=== PATIENT | female | born 1990 | race Caucasian/White ===

== ENCOUNTER → 2020-05-30 08:35 | Outpatient (BNVA) | payer SELFPAY | PROVIDERS: Family Provider Family Medicine; PCP Obstetrics & Gynecology; Visit Provider Obstetrics & Gynecology | DX: Z12.4 Encounter for screening for malignant neoplasm of cervix (principal) | CPT/HCPCS: 88175 ==

== ENCOUNTER → 2021-06-13 08:41 | Outpatient (BNVA) | payer BC, SELFPAY | PROVIDERS: Family Provider Family Medicine; PCP Family Medicine Adult Medicine; Visit Provider Obstetrics & Gynecology | DX: Z00.00 Encounter for general adult medical examination without abnormal findings (principal) | CPT/HCPCS: 80061; 83036 ==

== ENCOUNTER → 2022-04-02 11:37 | Outpatient (BNVA) | payer OTHER, SELFPAY | PROVIDERS: Family Provider Family Medicine; PCP Family Medicine Adult Medicine; Visit Provider Emergency Medicine | DX: U07.1 COVID-19 (principal); J06.9 Acute upper respiratory infection, unspecified; B34.9 Viral infection, unspecified | CPT/HCPCS: 87635 ==

== ENCOUNTER → 2022-10-01 11:20 | Outpatient (BNVA) | payer OTHER, SELFPAY | PROVIDERS: Family Provider Family Medicine; PCP Family Medicine Adult Medicine; Visit Provider Nurse Practitioner Women's Health | DX: N91.2 Amenorrhea, unspecified (principal); N91.1 Secondary amenorrhea | CPT/HCPCS: 84146; 84443; 84702 ==

== ENCOUNTER → 2023-01-22 13:39 | Outpatient (BNVA) | payer MEDICAID, SELFPAY | PROVIDERS: Family Provider Family Medicine; Visit Provider Nurse Practitioner Women's Health | DX: Z32.00 Encounter for pregnancy test, result unknown (principal); N92.6 Irregular menstruation, unspecified | CPT/HCPCS: 81025 ==

== ENCOUNTER → 2023-02-12 12:59 | Outpatient (BNVA) | payer SELFPAY | PROVIDERS: Family Provider Family Medicine; Visit Provider Nurse Practitioner Women's Health | DX: Z34.90 Encounter for supervision of normal pregnancy, unspecified, unspecified trimester (principal); Z3A.00 Weeks of gestation of pregnancy not specified | CPT/HCPCS: 81000 ==

== ENCOUNTER → 2023-03-02 14:00 | Outpatient (BNVA) | payer MEDICAID, SELFPAY | PROVIDERS: Family Provider Family Medicine; Visit Provider Obstetrics & Gynecology | DX: Z34.80 Encounter for supervision of other normal pregnancy, unspecified trimester (principal); Z3A.00 Weeks of gestation of pregnancy not specified | CPT/HCPCS: 80307; 81000; 82950; 84443; 85027; 86592; 86762; 86803; 86850; 86900; 87086; 87340; 87806 ==

== ENCOUNTER → 2023-03-20 14:03 | Outpatient (BNVA) | payer OTHER, SELFPAY | PROVIDERS: Family Provider Family Medicine; Visit Provider Obstetrics & Gynecology | DX: Z34.92 Encounter for supervision of normal pregnancy, unspecified, second trimester (principal); Z3A.13 13 weeks gestation of pregnancy | CPT/HCPCS: 76801 ==

== ENCOUNTER → 2023-05-04 09:29 | Outpatient (BNVA) | payer OTHER, SELFPAY | PROVIDERS: Family Provider Family Medicine; Visit Provider Obstetrics & Gynecology | DX: Z34.80 Encounter for supervision of other normal pregnancy, unspecified trimester (principal); Z3A.00 Weeks of gestation of pregnancy not specified | CPT/HCPCS: 76805 ==

== ENCOUNTER → 2023-05-06 10:13 | Outpatient (BNVA) | payer SELFPAY | PROVIDERS: Family Provider Family Medicine; Visit Provider Obstetrics & Gynecology | DX: Z34.80 Encounter for supervision of other normal pregnancy, unspecified trimester (principal); Z3A.00 Weeks of gestation of pregnancy not specified | CPT/HCPCS: 81000 ==

== ENCOUNTER → 2023-06-01 09:42 | Outpatient (BNVA) | payer OTHER, SELFPAY | PROVIDERS: Family Provider Family Medicine; Visit Provider Nurse Practitioner Women's Health | DX: Z34.80 Encounter for supervision of other normal pregnancy, unspecified trimester (principal) | CPT/HCPCS: 84315; 87491; 87591 ==

== ENCOUNTER → 2023-06-02 10:21 | Outpatient (BNVA) | payer OTHER, SELFPAY | PROVIDERS: Family Provider Family Medicine; Visit Provider Obstetrics & Gynecology | DX: Z34.92 Encounter for supervision of normal pregnancy, unspecified, second trimester (principal); Z3A.24 24 weeks gestation of pregnancy | CPT/HCPCS: 76816; 84315 ==

== ENCOUNTER → 2023-06-29 09:07 | Outpatient (BNVA) | payer OTHER, SELFPAY | PROVIDERS: Family Provider Family Medicine; Visit Provider Obstetrics & Gynecology | DX: Z34.80 Encounter for supervision of other normal pregnancy, unspecified trimester (principal) | CPT/HCPCS: 82950; 84315; 85025 ==

== ENCOUNTER → 2023-07-08 10:15 | Outpatient (BNVA) | payer OTHER, SELFPAY | PROVIDERS: Family Provider Family Medicine; Visit Provider Obstetrics & Gynecology | DX: Z34.93 Encounter for supervision of normal pregnancy, unspecified, third trimester (principal); Z3A.30 30 weeks gestation of pregnancy | CPT/HCPCS: 76816 ==

== ENCOUNTER → 2023-08-10 09:30 | Outpatient (BNVA) | payer OTHER, MEDICAID, SELFPAY | PROVIDERS: Family Provider Family Medicine; Visit Provider Nurse Practitioner Women's Health | DX: Z34.80 Encounter for supervision of other normal pregnancy, unspecified trimester (principal); Z3A.00 Weeks of gestation of pregnancy not specified | CPT/HCPCS: 84315; 87086 ==

== ENCOUNTER → 2023-08-24 08:07 | Outpatient (BNVA) | payer OTHER, MEDICAID, SELFPAY | PROVIDERS: Family Provider Family Medicine; Visit Provider Obstetrics & Gynecology | DX: Z34.80 Encounter for supervision of other normal pregnancy, unspecified trimester (principal); Z3A.00 Weeks of gestation of pregnancy not specified | CPT/HCPCS: 84315; 87081 ==

== ENCOUNTER 2023-09-15 19:47 | Inpatient (IN) | payer OTHER, MEDICAID, SELFPAY ==
[2023-09-15] VITALS (8 sets, daily range): BP systolic 109–150; BP diastolic 57–72; PULSE 65–86; RESP 16; TEMP 36.2
[2023-09-15 19:58] LABS: Basophils % 0.3 %; Eosinophils % 0.3 %; Hematocrit 33.1 % (36-47); Lymphocytes # 1.4 10^3/uL (0.8-4.8); Mean Corpuscular HGB Conc 30.5 g/dL (30-55); Mean Corpuscular Hemoglobin 22.5 pg (27-33); Mean Corpuscular Volume 73.9 fl (85-98); Monocytes # 0.6 10^3/uL (0.2-0.9); Monocytes % 7.1 %; Neutrophils # 6.58 10^3/uL (1.8-7.7); Nucleated Red Blood Cells % 0 %; Platelet Count 133 10^3/cmm (157-399); Red Blood Count 4.48 10^6/uL (3.85-5.65); Red Cell Distribution Width 24.9 % (12.1-15.1); White Blood Count 8.68 10^3/uL (3.29-11.43)
[2023-09-15] MEDS: miSOPROStol 100 mcg tablet 25 MCG VAGINAL (20:53)
--- NOTE | 2023-09-15 21:10 | P.HP_ITS ---
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 TRUCK DRIVER History of Present Illness Kyra Ruiz is a 33 year old female EDC September 19, 2023 at 39 w 3 d admitted for elective induction of labor no complications no c/o + active movements Present Details : 3 Para: 2 Labs Rubella: Non-Immune RPR: Negative GBS: Negative Medications/Allergies Home Medications Medication Instructions Recorded Confirmed Last Taken Type prenat.vits,ángel,hah-iwzs-isjaj 1 tab PO DAILY 07/02/22 09/15/23 Unknown History diphenhydramine HCl 25 mg tablet 25 mg PO .q hs PRN allergy 01/06/23 09/15/23 Unknown Rx (Allergy (diphenhydramine)) symptoms #30 tabs loratadine 5 mg-pseudoephedrine ER 1 tab PO Q12H 07/27/23 09/15/23 Unknown History 120 mg tablet,extended release,12hr (Claritin-D 12 Hour) docusate sodium 100 mg capsule 100 mg PO BID 30 days #60 caps 08/10/23 09/15/23 Unknown Rx (Colace) ferrous sulfate 325 mg (65 mg See Rx Instructions .Route 08/27/23 09/15/23 Unknown Rx iron) tablet .COMPLEX #20 tabs Allergies Allergy/AdvReac Type Severity Reaction Status Date / Time morphine AdvReac Intermediate ADR-Nausea Verified 09/15/23 09:26 cyclobenzaprine AdvReac NAUSEA Verified 09/15/23 09:26 [From Flexeril] [facility] 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 Dowling Surgical History History of orthopedic surgery Age of 11--surgery for a left leg fracture Status post bariatric surgery 2013-states she had a laparoscopic gastric sleeve placed when she was in [place], [place]. She is lost a total of 50 pounds thus far. Family History Grandfather Diabetes maternal Heart disease maternal Mother Heart disease Hyperlipidemia Father Heart disease Grandmother Stroke maternal, from a brain aneurysm Denies family history of Colon cancer Ovarian cancer Breast cancer Hypertension Uterine cancer Thyroid disease History History History 2 3 Term 2 0 Miscarriages/Ectopic 0 Living Children 2 Care LUIS Calculator 2 Estimated Delivery Date Method Current WG Current Estimate 09/19/23 LMP (Certain) 39w 5d Other Estimates 09/19/23 Ultrasound #1 39w 5d Specific Issues/Plans * OBESITY-- needs early GCT Vitals/I&O/Wt Last Vital Signs Temp 98.1 F 09/16/23 19:52 Pulse 75 09/17/23 00:33 Resp 18 09/16/23 20:20 BP 134/79 09/17/23 05:52 Pulse Ox 98 09/17/23 00:33 O2 Del Method Room Air 09/15/23 19:57 09/16/23 09/16/23 09/17/23 14:59 22:59 06:59 Intake Total 1150.767 / 1150.767 50 / 1200.767 Output Total 300 / 300 Balance 1150.767 / 1150.767 -250 / 900.767 Weight last 48 hrs Weight 8.325 oz Physical Exam 2 Narrative: VS normal Comfortable, awake, alert Lungs: clear Cor: RRR Fundal height: 39 cm; large pannus Cx: 1 cm / 25% / -4 / posterior / cephalic Ext: no edema External monitor: heart tracing good variability, + accelerations Urinary Catheter Management: De Jesus: Cath Placed During This Visit: yes, but has since been removed by the nurse Reason for Continuing Indwelling Catheter: Decision to DC Catheter Urinary Catheter Date of Insertion: 09/16/23 Urinary Catheter Time of Insertion: 04:40 Date Urinary Catheter Removed: 09/16/23 Time Urinary Catheter Discontinued: 16:10 Data 09/17/23 05:45 Results Labs OB ([facility]): 2 Obstetrics US 07/08/23 Blood Type AB Positive 09/15/23 Antibody Screen Negative 09/15/23 Hct 29.8 % (36-47) L 09/17/23 Hgb 8.90 g/dL (11.27-16.99) L 09/17/23 Rho(D) Type Rh positive 09/15/23 Plt Count 115 10^3/cmm (157-399) L 09/17/23 Hep Bs Antigen Non-reactive (Nonreactive) 03/02/23 Hepatitis C Antibody Non-reactive (Nonreactive) 03/02/23 Rubella IgG Antibody 377.0 IU/mL (0.0-10.0) H 03/02/23 RPR Nonreactive (Nonreactive) 03/02/23 HIV 1&2 Ab & HIV 1 Ag Non-reactive (Non-Reactiv) 03/02/23 TSH 1.49 uIU/mL (0.27-4.20) 03/02/23 C.trachomatis RNA (TMA) Not detected (NOT DETECTED) N.gonorrhoeae RNA (TMA) Not detected (NOT DETECTED) Chlamydia/GC Comment See note 06/01/23 Cystic Fibrosis Screen Negative 03/02/23 Gest Glucose Tolerance 103 mg/dL (70-139) 06/29/23 Hemoglobin A1c 5.2 % (4.0-6.0) 06/13/21 Ser , Semi-Qnt 1.00 mIU/mL 10/01/22 HCG, Qual Positive (Negative) H 01/22/23 Urine Opiates Screen Negative ng/mL (Negative) 03/02/23 Ur Barbiturates Screen Negative ng/mL (Negative) 03/02/23 Ur Phencyclidine Scrn Negative ng/mL (Negative) 03/02/23 Ur Amphetamines Screen Negative ng/mL (Negative) 03/02/23 U Benzodiazepines Scrn Negative ng/mL (Negative) 03/02/23 Urine Cocaine Screen Negative ng/mL (Negative) 03/02/23 U Marijuana (THC) Screen Negative ng/mL (Negative) 03/02/23 Micro Urine Specimen 08/10/23 Pap Smear Interpret See note 05/30/20 Prolactin 7.65 ng/mL (4.8-23.3) 10/01/22 A&P Assessment and plan (1) Supervision of other normal : 39 w 3 d (2) Encounter for induction of labor: admitted for elective induction of labor plan cytotec 25 ug intravaginal Attestations 2 Medical Necessity Statement*: patient at 39 w 3 d; admitted for induction of labor Coding Level of Care Code Acute Code for Chg Fwd Diagnoses Supervision of other normal Z34.80 Encounter for induction of labor Z34.90 Time Spent (min) 30
[2023-09-16] VITALS (152 sets, daily range): BP systolic 93–157; BP diastolic 50–102; PULSE 65–123; RESP 16–18; TEMP 35.8–36.8; O2SAT 90–100
[2023-09-16] MEDS: fentaNYL 50 mcg/mL INJ 2mL IVP ×2 (00:49→03:00)
[2023-09-16] MEDS: lactated ringers 1,000 ML 999 ML IV (02:26)
[2023-09-16] MEDS: ROPivacaine syringe 100 MG/50 ML SYRINGE 10 MG EPIDURAL ×4 (03:50→14:36)
--- NOTE | 2023-09-16 03:54 | ANES.PREANE2 ---
Pre-Anesthetic Assessment Height/Weight: Height 1.6 m Weight 236 g Temp Pulse Resp BP Pulse Ox O2 Del Method 98.2 F 93 16 156/74 99 Room Air 09/16/23 02:33 09/16/23 03:49 09/16/23 03:00 09/16/23 03:49 09/16/23 03:47 09/15/23 19:57 Preop Diagnosis: Labor pain MARQUIS Was Beta Brien taken within 24 hours: N/A Was Clonidine taken within 24 hours: N/A Social No alcohol and No tobacco Exam alert, oriented x 3, clear to auscultation bilaterally and regular rate & rhythm Airway Submandibular: within normal limits Cervical ROM: within normal limits Mallampati: Class II Dentition: full History/ROS No significant history except as noted and No significant complaints CV/HEM None reported None reported Hepatic None reported GI None reported Metabolic Morbid Obesity [facility] [place] None reported Neuropsych None reported Anesthetic Plan ASA status: 2 Anesthesia: Anesthesia Evaluation and Regional (specify below) (MARQUIS) Risk of > 500 ml blood loss (7ml/kg in children): No Medications/Allergies Home Medications Medication Instructions Recorded Confirmed Last Taken Type prenat.vits,ángel,pbf-irfm-gzyiq 1 tab PO DAILY 07/02/22 09/15/23 Unknown History diphenhydramine HCl 25 mg tablet 25 mg PO .q hs PRN allergy 01/06/23 09/15/23 Unknown Rx (Allergy (diphenhydramine)) symptoms #30 tabs loratadine 5 mg-pseudoephedrine ER 1 tab PO Q12H 07/27/23 09/15/23 Unknown History 120 mg tablet,extended release,12hr (Claritin-D 12 Hour) docusate sodium 100 mg capsule 100 mg PO BID 30 days #60 caps 08/10/23 09/15/23 Unknown Rx (Colace) ferrous sulfate 325 mg (65 mg See Rx Instructions .Route 08/27/23 09/15/23 Unknown Rx iron) tablet .COMPLEX #20 tabs Allergies Allergy/AdvReac Type Severity Reaction Status Date / Time morphine AdvReac Intermediate ADR-Nausea Verified 09/15/23 09:26 cyclobenzaprine AdvReac NAUSEA Verified 09/15/23 09:26 [From Flexeril] Current Medications Generic Name Dose Route Start Last Admin Trade Name Freq PRN Reason Stop Dose Admin Fentanyl 25 - 100 mcg 09/15/23 19:46 09/16/23 03:00 Fentanyl 50 Mcg/Ml Inj 2ml IVP 50 mcg Q1H PRN Administration SEVERE PAIN Lactated Ringer's 1,000 mls @ 999 mls/hr 09/15/23 19:46 09/16/23 02:26 Lactated Ringers IV 999 mls/hr .Q1H1M PRN Administration Per L&D Rescitation Protocol Dextrose/Lactated Ringer's 1,000 mls @ 125 mls/hr 09/15/23 20:00 09/16/23 01:39 Dextrose 5%-Lactated Ringers IV Not Given .Q8H KAYE PFSH Anesthesia Medical History Allergic rhinitis due to allergen Amenorrhea No pertinent past medical history Denies diabetes, asthma, hypertension, seizures, DVT/PE PMD: Dr. Dowling Surgical History History of orthopedic surgery Age of 11--surgery for a left leg fracture Status post bariatric surgery 2013-states she had a laparoscopic gastric sleeve placed when she was in [place], [place]. She is lost a total of 50 pounds thus far. Family History Grandfather Diabetes maternal Heart disease maternal Mother Heart disease Hyperlipidemia Father Heart disease Grandmother Stroke maternal, from a brain aneurysm Denies family history of Colon cancer Ovarian cancer Breast cancer Hypertension Uterine cancer Thyroid disease Female Reproductive History : 3 Data Anesthesia 09/15/23 19:31 Short CBC 09/15/23 Range/Units 19:31 WBC 8.68 (3.29-11.43) 10^3/uL Hgb 10.10 L (11.27-16.99) g/dL Hct 33.1 L (36-47) % MCV 73.9 L (85-98) fl Plt Count 133 L (157-399) 10^3/cmm Neut % (Auto) 76.0 % Neut # (Auto) 6.58 (1.8-7.7) 10^3/uL Blood Bank 09/15/23 19:31 Blood Type AB Positive Rho(D) Type Rh positive Antibody Screen Negative Cardiac Studies: No Data to Display
--- NOTE | 2023-09-16 03:56 | P.ANES_ITS ---
Anesthesia Procedures Procedure/Date: 09/16/23 Epidural: Time Out Performed: Yes Consents Signed: Procedure Consent Consent: from patient Lumbar Level: L3-L4 Epidural position: sitting Epidural procedure: sterile prep of area, 1% lidocaine to numb the area, 18 g needle, neg for paresthesia, test dose given, 1.5% xylocaine 1:200k epi (5cc), 0 .2% Ropivacaine bolus ml (4cc and Fentanyl 100mcg), placed PCEA, no systemic response, sterile dressing applied, L.U.D. no apparent complications and 0.2% Ropiavacaine @ mls/hr (10cc/hour) Additional Comments: RASHIDA at 8cm. Cath placed 3 cm into epid space. Pt tolerated well
[2023-09-16] MEDS: dextrose 5%-lactated ringers 1,000 ML 125 ML IV ×2 (04:36→13:10)
[2023-09-16] MEDS: hyDROXYzine 25 mg Capsule 50 MG PO ×3 (06:50→20:23)
[2023-09-16] MEDS: oxytocin 30 UNIT/500 ML BAG IV (13:29)
--- NOTE | 2023-09-16 16:45 | P.PCNOB_ITS ---
Delivery Note: Date of delivery: September 16, 2023 Pre-delivery diagnoses: 39.4 wk IUP Multiparity Post-delivery diagnoses: Precipitious viable male Procedure: viable male Op report anesthesia: Epidural Delivering Physician: Sena Bean DO Estimated blood loss (mL): 400 Findings: viable male Post Delivery Diagnoses: Anemia: Qualifiers: Qualified Code(s): D64.9 - Anemia, unspecified Delivery: 33-year-old multiparous female del ivered via of a viable male precipitously from OA presentation. The anterior followed by the posterior shoulders delivered with the remainder of the baby's body to follow with a copious amount of meconium stained fluid noted. Robust cry spontaneously was noted. The oral and nasal pathways bulb suctioned. Delay in clamping the umbilical cord was done, the cord was then clamped x 2 and cut. The baby was then placed on the mother's abdomen for nursing staff's evaluation and care. Three-vessel cord was noted, cord blood was obtained and handed off. The placenta presented in a Spicer presentation with trailing membrane. The vaginal vault was explored for lacerations, none noted. The uterus was massaged and firmed well. IV solution with Pitocin was given in a bolus manner. Attending physician Dr. Soto arrived in patient's room. Mother and infant are both in stable and satisfactory condition. Post-Delivery Status: Stable History History History 3 Term 2 0 Miscarriages/Ectopic 0 Living Children 2 A&P Assessment and plan (1) 39 weeks gestation of : (2) Spontaneous vaginal delivery: (3) Obesity: (4) Anemia: Qualifiers: Qualified Code(s): D64.9 - Anemia, unspecified Plan Began care. Coding Level of Care Code Acute Code for Chg Fwd Diagnoses 39 weeks gestation of Z3A.39 Spontaneous vaginal delivery O80 Obesity E66.9 Anemia, unspecified type D64.9
[2023-09-16] MEDS: docusate sodium 100 mg Capsule PO (20:23)
[2023-09-16] MEDS: ibuprofen 800 mg tablet PO (20:24)
[2023-09-17 00:33] VITALS: BP 120/75; PULSE 75; O2SAT 98
[2023-09-17 03:04] VITALS: BP 133/75
[2023-09-17 05:52] VITALS: BP 134/79
[2023-09-17 05:53] LABS: Hematocrit 29.8 % (36-47); Mean Corpuscular HGB Conc 29.9 g/dL (30-55); Mean Corpuscular Hemoglobin 22.6 pg (27-33); Mean Corpuscular Volume 75.6 fl (85-98); Platelet Count 115 10^3/cmm (157-399); Red Blood Count 3.94 10^6/uL (3.85-5.65); Red Cell Distribution Width 25.2 % (12.1-15.1); White Blood Count 13.93 10^3/uL (3.29-11.43)
[2023-09-17] MEDS: prenatal vitamin Capsule 1 CAP PO (09:17)
[2023-09-17] MEDS: ibuprofen 800 mg tablet PO ×2 (09:17→15:39)
[2023-09-17] MEDS: docusate sodium 100 mg Capsule PO (09:18)
[2023-09-17 10:38] VITALS: BP 132/70; PULSE 68; TEMP 36.7; O2SAT 99
--- NOTE | 2023-09-17 11:01 | ANE.PACU2 ---
Inpatient post-anesthesia follow up: Airway intact: Yes Vital signs: Temperature 98.0 F Pulse Rate 68 Respiratory Rate 18 Blood Pressure 132/70 Pulse Oximetry 99 Oxygen Delivery Me thod Room Air Oxygen Flow Rate Fraction of Inspir ed Oxygen Hydration adequate: Yes Nausea and vomiting: No Pain level: 2 Mental status: Baseline Epidural Start/End: Epidural Start Date: 09/16/23 Epidural Start Time: 03:30 Epidural End Date: 09/16/23 Epidural End Time: 16:45
[2023-09-17 16:08] VITALS: BP 147/85; PULSE 78; TEMP 36.6; O2SAT 99
--- NOTE | 2023-09-17 16:50 | PM.OBGYDC ---
Discharge Providers MANAGER [employer] Date of Admission: 09/15/23 19:47 Date of Discharge: 09/17/23 Attending Provider at Admission: Joo Soto MD Attending Provider at Discharge: Joo Soto MD Consults: none Primary MANAGER [employer]: Joo Soto MD Diagnoses at Discharge Discharge Diagnosis (1) Vaginal delivery: Details from hospital stay: patient was admitted for elective induction of labor progressed with normal labor course s/p vaginal delivery Status: Acute Reason for Visit Reason for Visit: IOL Brief History: 33 y.o. at 39 w 3 d, admitted for elective induction of labor Hospital Course Hospital Course normal labor course Information Peripartum Data: Delivery Method: Vaginal Laceration description: Perineal - 2nd Degree Episiotomy description: None complications: none Physical Exam Narrative: afebrile, VS? normal Comfortable, awake, alert Lungs:?? clear Cor:? RRR Abd:? soft, nontender.? Fundus firm. Ext:? no edema;? nontender Urinary Catheter Management: De Jesus: Cath Placed During This Visit: yes, but has since been removed by the nurse Reason for Continuing Indwelling Catheter: Decision to DC Catheter Urinary Catheter Date of Insertion: 09/16/23 Urinary Catheter Time of Insertion: 04:40 Date Urinary Catheter Removed: 09/16/23 Time Urinary Catheter Discontinued: 16:10 History History History 3 Term 2 0 Miscarriages/Ectopic 0 Living Children 2 Discharge Data Studies Completed and Pending Laboratory Results WBC 13.93 10^3/uL (3.29-11.43) H 09/17/23 05:45 RBC 3.94 10^6/uL (3.85-5.65) 09/17/23 05:45 Hgb 8.90 g/dL (11.27-16.99) L 09/17/23 05:45 Hct 29.8 % (36-47) L 09/17/23 05:45 MCV 75.6 fl (85-98) L 09/17/23 05:45 MCH 22.6 pg (27-33) L 09/17/23 05:45 MCHC 29.9 g/dL (30-55) L 09/17/23 05:45 RDW 25.2 % (12.1-15.1) H 09/17/23 05:45 Plt Count 115 10^3/cmm (157-399) L 09/17/23 05:45 MPV Not Reportable 09/17/23 05:45 Neut % (Auto) 76.0 % 09/15/23 19:31 Lymph % (Auto) 16.0 % 09/15/23 19:31 Pinal % (Auto) 7.1 % 09/15/23 19: Eos % (Auto) 0.3 % 09/15/23 19: Baso % (Auto) 0.3 % 09/15/23 19: Neut # (Auto) 6.58 10^3/uL (1.8-7.7) 09/15/23 19: Lymph # (Auto) 1.4 10^3/uL (0.8-4.8) 09/15/23 19: Pinal # (Auto) 0.6 10^3/uL (0.2-0.9) 09/15/23 19: Eos # (Auto) 0.0 10^3/uL (0.0-0.8) 09/15/23 19: Baso # (Auto) 0.0 10^3/uL (0.0-0.1) 09/15/23 19: Nucleated RBC % (auto) 0 % 09/15/23 19: Nucleated RBCs # 0.0 /100WBC 09/15/23 19:31 Blood Type AB Positive 09/15/23 19:31 Rho(D) Type Rh positive 09/15/23 19:31 Antibody Screen Negative 09/15/23 19:31 Procedures Performed induction of labor vaginal delivery Vitals Last Vital Signs Temp 97.8 F 09/17/23 19:00 Pulse 75 09/17/23 19:00 Resp 18 09/16/23 20:20 BP 144/86 09/17/23 19:00 Pulse Ox 99 09/17/23 19:00 O2 Del Method Room Air 09/17/23 19:00 Results Labs OB ([facility]): Obstetrics US 07/08/23 Blood Type AB Positive 09/15/23 Antibody Screen Negative 09/15/23 Hct 29.8 % (36-47) L 09/17/23 Hgb 8.90 g/dL (11.27-16.99) L 09/17/23 Rho(D) Type Rh positive 09/15/23 Plt Count 115 10^3/cmm (157-399) L 09/17/23 Hep Bs Antigen Non-reactive (Nonreactive) 03/02/23 Hepatitis C Antibody Non-reactive (Nonreactive) 03/02/23 Rubella IgG Antibody 377.0 IU/mL (0.0-10.0) H 03/02/23 RPR Nonreactive (Nonreactive) 03/02/23 HIV 1&2 Ab & HIV 1 Ag Non-reactive (Non-Reactiv) 03/02/23 TSH 1.49 uIU/mL (0.27-4.20) 03/02/23 C.trachomatis RNA (TMA) Not detected (NOT DETECTED) 06/01/23 N.gonorrhoeae RNA (TMA) Not detected (NOT DETECTED) 06/01/23 Chlamydia/GC Comment See note 06/01/23 Cystic Fibrosis Screen Negative 03/02/23 Gest Glucose Tolerance 103 mg/dL (70-139) 06/29/23 Hemoglobin A1c 5.2 % (4.0-6.0) 06/13/21 Ser , Semi-Qnt 1.00 mIU/mL 10/01/22 HCG, Qual Positive (Negative) H 01/22/23 Urine Opiates Screen Negative ng/mL (Negative) 03/02/23 Ur Barbiturates Screen Negative ng/mL (Negative) 03/02/23 Ur Phencyclidine Scrn Negative ng/mL (Negative) 03/02/23 Ur Amphetamines Screen Negative ng/mL (Negative) 03/02/23 U Benzodiazepines Scrn Negative ng/mL (Negative) 03/02/23 Urine Cocaine Screen Negative ng/mL (Negative) 03/02/23 U Marijuana (THC) Screen Negative ng/mL (Negative) 03/02/23 Micro Urine Specimen 08/10/23 Pap Smear Interpret See note 05/30/20 Prolactin 7.65 ng/mL (4.8-23.3) 10/01/22 Discharge Plan Discharge Patient Disposition: Home Condition: Stable Prescriptions: Continued prenat.vits,ángel,[id number]-[id number] Tablet 1 tab PO DAILY diphenhydramine HCl [Allergy (diphenhydramine)] 25 mg tablet 25 mg PO .q hs PRN (Reason: allergy symptoms) Qty: 30 0RF Claritin-D 12 Hour 5-120 mg tablet extended release 12 hr 1 tab PO Q12H docusate sodium [Colace] 100 mg capsule 100 mg PO BID 30 Days Qty: 60 1RF ferrous sulfate 325 mg (65 mg iron) tablet See Rx Instructions .ROUTE .COMPLEX Qty: 20 0RF Dose Instruction: TAKE 1 TABLET BY MOUTH EVERY DAY Rx Instructions: TAKE 1 TABLET BY MOUTH EVERY DAY Discharge Orders: Discharge Order (Routine); Ordered 09/17/23 Ordered By: Joo Soto Referrals: Joo Soto MD [Physician] - (Please [facility] tomorrow to schedule your appointment with Dr. Soto for 4-6 weeks. ) Discharge Diet: Usual diet Discharge Activity: Resume usual activity Patient Instructions: Depression (DC), Preeclampsia and Eclampsia After Delivery (GEN), Hemorrhage (DC), OB Discharge Report, OB Food/Drug Interaction Guide, Opioid Safety, OB Home Care, OB Vaginal Deliveries, Abnormal Bleeding Discharge Attestations MANAGER [employer] Time Spent in Discharge Care*: less than 30 min Coding Level of Care Code Acute Code for Chg Fwd Diagnoses Vaginal delivery O80 Time Spent (min) 20
--- NOTE | 2023-09-17 16:50 | P.PN_ITS ---
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 Fundus firm. Ext: no edema; nontender Urinary Catheter Management: De Jesus: Cath Placed During This Visit: yes, but has since been removed by the nurse Reason for Continuing Indwelling Catheter: Decision to DC Catheter Urinary Catheter Date of Insertion: 09/16/23 Urinary Catheter Time of Insertion: 04:40 Date Urinary Catheter Removed: 09/16/23 Time Urinary Catheter Discontinued: 16:10 Data 09/17/23 05:45 A&P Assessment and plan (1) Vaginal delivery: PPD #1, , repair of second-degree perineal laceration doing well patient wants to go home discharge today instructions and precautions given call / return if fever, chills, headache, blurry vision, nausea, vomiting, abdominal pain; vaginal bleeding or discharge; shortness of breath, chest pain, leg pains or swelling; feelings of depression or mood changes; inability to care for baby. f/u in 6 weeks or PRN Attestations 2 Medical Necessity Statement*: patient s/p vaginal delivery Coding Level of Care Code Acute Code for Chg Fwd Diagnoses Vaginal delivery O80 Time Spent (min) 20
[2023-09-17 19:00] VITALS: BP 144/86; PULSE 75; TEMP 36.6; O2SAT 99
== END 2023-09-17 19:05 | disposition home or self-care (01) | DRG 807 ==
LOC: OPOB 09-16 07:25 → OBGYN 09-16 07:25
PROVIDERS: Obstetrics & Gynecology; Admitting Provider Obstetrics & Gynecology; Family Provider Family Medicine; Visit Provider Obstetrics & Gynecology
DX: O99.214 Obesity complicating childbirth (principal); Z37.0 Single live birth; E66.9 Obesity, unspecified; Z3A.39 39 weeks gestation of pregnancy; O90.81 Anemia of the puerperium; D64.9 Anemia, unspecified; O77.0 Labor and delivery complicated by meconium in amniotic fluid; O70.1 Second degree perineal laceration during delivery; O99.844 Bariatric surgery status complicating childbirth
CPT/HCPCS: 36415; 51702; 59025; 59409; 84315; 85025; 85027; 86850; 86900; 96374; 96376; 98960; 99211; J2590; J2795; J3010; J7120; J7121

== ENCOUNTER 2023-10-15 11:23 | Outpatient (CLI) | payer OTHER, MEDICAID, SELFPAY ==
--- NOTE | 2023-10-15 12:00 | USCV_ITS ---
Kyra Ruiz Age: 33 Gender: F : 1990 Exam Date: 10/15/2023 11:54 Ordering Phys: Joo Soto MD Technologist: Exam Location: [facility] [place] Indication: bilat edema PROCEDURES: The venous duplex Doppler examination of both lower extremities was performed in the standard fashion. The following venous structures were evaluated: common femoral vein, profunda vein, proximal portion of the greater saphenous vein, superficial femoral vein, and the popliteal vein. FINDINGS: Normal 2-D Doppler and augmentation and compressibility throughout the lower extremity venous structures. Additional imaging through the proximal calf veins also reveals no thrombus. Limited evaluation of the greater saphenous vein is patent with no thrombus. CONCLUSIONS No DVT bilateral lower extremities. Dr. Key Dodge DO (Electronically Signed) Final Date: 15 October 2023 15:42 S
== END 2023-10-15 11:24 | disposition home or self-care (01) ==
LOC: RAD 11:24
PROVIDERS: Family Provider Family Medicine; Visit Provider Obstetrics & Gynecology
DX: M79.604 Pain in right leg (principal); M79.605 Pain in left leg; R60.0 Localized edema
CPT/HCPCS: 93970

== ENCOUNTER → 2023-11-11 08:45 | Outpatient (BNVA) | payer OTHER, SELFPAY | PROVIDERS: Family Provider Family Medicine; PCP Family Medicine; Visit Provider Family Medicine | DX: R60.9 Edema, unspecified (principal); R68.89 Other general symptoms and signs; D64.9 Anemia, unspecified | CPT/HCPCS: 80053; 81003; 83880; 84443; 85025 ==

== ENCOUNTER 2024-12-11 09:51 | Emergency (ER) | payer MEDICAID, SELFPAY ==
[2024-12-11 09:52] VITALS: BP 112/90; PULSE 93; RESP 17; TEMP 36.9; O2SAT 93; BMI 38.9
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
--- NOTE | 2024-12-11 10:23 | PC.PHAR ---
Pharmacy states pt has no other current medications. Waiting to get into the room to speak to Pt.
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
[2024-12-11] MEDS: ketorolac 30 mg/mL INJ IVP (11:55)
--- NOTE | 2024-12-11 11:56 | ECG_ITS ---
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
[2024-12-11] MEDS: doxycycline 100 MG in sodium chloride 0.9% (plus) 100 ML IV (11:58)
[2024-12-11 12:33] LABS: Basophils % 0.4 %; Eosinophils % 0.4 %; Lymphocytes # 0.9 10^3/uL (0.8-4.8); Lymphocytes % 8.7 %; Mean Corpuscular HGB Conc 30.3 g/dL (30-55); Mean Corpuscular Hemoglobin 22.9 pg (27-33); Mean Corpuscular Volume 75.5 fl (85-98); Mean Platelet Volume 11.7 fL (7.4-10.4); Monocytes # 0.6 10^3/uL (0.2-0.9); Monocytes % 6.2 %; Neutrophils # 8.19 10^3/uL (1.8-7.7); Neutrophils % 83.9 %; Nucleated Red Blood Cells % 0 %; Platelet Count 302 10^3/cmm (157-399); Red Cell Distribution Width 15.4 % (12.1-15.1); White Blood Count 9.77 10^3/uL (3.29-11.43)
[2024-12-11 12:56] LABS: Alanine Aminotransferase 13 U/L (0-33); Albumin Level 3.8 g/dL (3.5-5.2); Alkaline Phosphatase 153 U/L (35-105); Anion Gap 16.8 (5-19); Aspartate Amino Transferase 17 U/L (0-32); Blood Urea Nitrogen 6 mg/dL (6-20); C Reactive Protein 138.1 mg/L (0.0-4.9); Carbon Dioxide 24 mmol/L (22-29); Chloride 101 mmol/L (98-107); Globulin 4.4 g/dL (1.3-4.6); Glomerular Filtration Rate 94.7 mL/min (90-130); Glucose 92 mg/dL (65-115); Lactic Sepsis W/Reflex 1.1 mmol/L (0.5-2.2); Osmolality Calculated 283 mOsm/kg (285-295); Potassium 3.8 mmol/L (3.5-5.1); Sodium 138 mmol/L (136-145); Total Bilirubin 0.3 mg/dL (0.15-1.2); Total Protein 8.2 g/dL (6.6-8.7)
[2024-12-11 13:02] LABS: Procalcitonin 0.09 ng/mL (0-0.5)
[2024-12-11 13:20] VITALS: BP 123/75; PULSE 99; O2SAT 96
[2024-12-11 13:37] LABS: Influenza A NEGATIVE (Negative); Influenza B NEGATIVE (Negative); Respiratory Syncytial Virus Ce NEGATIVE (Negative); SARS-CoV-2 PCR NEGATIVE (Negative)
== END 2024-12-11 13:20 | disposition home or self-care (01) ==
PROVIDERS: Emergency Provider Emergency Medicine; Family Provider Family Medicine; PCP Family Medicine
DX: S20.219A Contusion of unspecified front wall of thorax, initial encounter (principal); J18.9 Pneumonia, unspecified organism; V89.2XXA Person injured in unspecified motor-vehicle accident, traffic, initial encounter
CPT/HCPCS: 36415; 71045; 71250; 80053; 83605; 84145; 85025; 86140; 87040; 87637; 93005; 96365; 96375; 99285; J1885; J3490

== ENCOUNTER 2024-12-23 11:28 | Outpatient (CLI) | payer MEDICAID, SELFPAY ==
--- NOTE | 2024-12-23 11:32 | XR_ITS ---
WS: [id number] Exam: XR chest 2V* [id number] Date/Time of Exam: 12/23/2024 11:33 AM Reason For Exam: f/u bibasilar pneumonia Comparison 12/11/2024. Previously noted bibasal infiltrates have almost completely resolved. Normal cardiomediastinal silhouette. No pleural effusions. Bony structures are intact. The mediastinum is normal in contour. XR/XR chest 2V* [id number] IMPRESSION: 1. Previously noted bibasal infiltrates have almost completely resolved.
== END 2024-12-23 11:29 | disposition home or self-care (01) ==
PROVIDERS: PCP Family Medicine; Visit Provider Family Medicine
DX: J18.9 Pneumonia, unspecified organism (principal); R91.8 Other nonspecific abnormal finding of lung field
CPT/HCPCS: 71046

== ENCOUNTER → 2025-06-21 09:35 | Outpatient (BNVA) | payer BC, SELFPAY | PROVIDERS: PCP Family Medicine; Visit Provider Family Medicine | DX: Z00.00 Encounter for general adult medical examination without abnormal findings (principal); E66.9 Obesity, unspecified; R53.83 Other fatigue | CPT/HCPCS: 80053; 80061; 82306; 82607; 84443; 85025 ==

== ENCOUNTER → 2025-07-24 14:17 | Outpatient (BNVA) | payer BC, SELFPAY | PROVIDERS: PCP Family Medicine; Visit Provider Family Medicine | DX: Z12.4 Encounter for screening for malignant neoplasm of cervix (principal) | CPT/HCPCS: 87624 ==